=== PATIENT | female | born 1995 | race Caucasian/White ===

== ENCOUNTER → 2017-03-28 | Outpatient (REF) | payer OTHER ==
[2017-03-28 18:58] LABS: MEAN CORPUSCULAR HEMOGLOBIN 28.8 pg (27.0-33.0); MEAN CORPUSCULAR HGB CONC 32.5 g/dl (32.0-36.5); MEAN CORPUSCULAR VOLUME 88.5 fl (80.0-96.0); PLATELET COUNT, AUTOMATED 228 10^3/uL (150-450); RED CELL DISTRIBUTION WIDTH 13.4 % (11.5-14.5); WHITE BLOOD COUNT 9.6 10^3/uL (4.0-10.0)
[2017-03-29 11:06] LABS: HBsAg Prenatal NEGATIVE (NEGATIVE)
== END ==
LOC: M LAB REF 16:40
PROVIDERS: ATTEND Obstetrics & Gynecology
DX: O36.80X0 Pregnancy with inconclusive fetal viability, not applicable or unspecified (principal)

== ENCOUNTER → 2017-08-26 | Outpatient (CLI) | payer OTHER ==
[2017-08-26 11:15] LABS: HEMATOCRIT 31.8 % (36.0-47.0); HEMOGLOBIN 10.6 g/dl (12.0-15.5); MEAN CORPUSCULAR HEMOGLOBIN 30.1 pg (27.0-33.0); MEAN CORPUSCULAR HGB CONC 33.3 g/dl (32.0-36.5); MEAN CORPUSCULAR VOLUME 90.3 fl (80.0-96.0); PLATELET COUNT, AUTOMATED 188 10^3/uL (150-450); RED BLOOD COUNT 3.52 10^6/uL (4.00-5.40); RED CELL DISTRIBUTION WIDTH 13.1 % (11.5-14.5); WHITE BLOOD COUNT 10.4 10^3/uL (4.0-10.0)
[2017-08-26 12:16] LABS: GLUCOSE CHALLENGE TEST 1 HOUR 114 MG/DL (LESS THAN 140)
== END ==
LOC: M LAB 09:31
DX: Z34.82 Encounter for supervision of other normal pregnancy, second trimester (principal); Z3A.00 Weeks of gestation of pregnancy not specified
CPT/HCPCS: 82950

== ENCOUNTER 2017-11-26 10:17 | Inpatient (IN) | payer OTHER ==
[2017-11-26 11:39] LABS: HEMATOCRIT 33.6 % (36.0-47.0); HEMOGLOBIN 10.9 g/dl (12.0-15.5); MEAN CORPUSCULAR HEMOGLOBIN 26.5 pg (27.0-33.0); MEAN CORPUSCULAR HGB CONC 32.4 g/dl (32.0-36.5); MEAN CORPUSCULAR VOLUME 81.6 fl (80.0-96.0); PLATELET COUNT, AUTOMATED 163 10^3/uL (150-450); RED BLOOD COUNT 4.12 10^6/uL (4.00-5.40); WHITE BLOOD COUNT 8.8 10^3/uL (4.0-10.0)
[2017-11-26] MEDS: miSOPROStol 50 MCG 1/2 TAB (S0191) PO (13:10)
[2017-11-26] MEDS: valACYclovir HCL 500 MG TAB PO (13:26)
[2017-11-26] MEDS ORDERED: OXYTOCIN 30 UNITS IN 0.9% NaCl 500ML IV BAG (J2590) As Ordered (19:56)
[2017-11-26] MEDS: OXYTOCIN DRIP 30 UNITS in APPROPRIATE DILUENT 1 EA IV (20:11)
[2017-11-26] MEDS: LR 1,000 ML IV (20:11)
[2017-11-26] MEDS ORDERED: FENTANYL 2MCG/ML ROPIVACAINE 0.2% IN 0.9% NACL 200ML IVBAG As Ordered (23:07)
[2017-11-27] MEDS ORDERED: EPIDURAL/PCA KEYS XX (00:45)
[2017-11-27] MEDS ORDERED: REFRIGERATOR IV KEYS XX (00:45)
[2017-11-27] MEDS ORDERED: FENTANYL/ROPIVACAINE/NACL BAG 200 ML EPIDURAL (00:45)
[2017-11-27] MEDS ORDERED: NALOXONE INJ 0.4 MG/1 ML VIAL (J2310) IV (00:45)
[2017-11-27] MEDS ORDERED: diphenhydrAMINE INJ 50MG/ML VIAL (J1200) IV (00:45)
[2017-11-27] MEDS ORDERED: ePHEDrine SULFATE 25 MG/5 ML(5MG/ML) SYRINGE IV (00:45)
[2017-11-27] MEDS ORDERED: LACTATED RINGER'S 1000 ML IV (00:45)
[2017-11-27] MEDS ORDERED: EPIDURAL COMMENT XX (00:45)
[2017-11-27] MEDS: ONDANSETRON 4MG/2ML VIAL (J2405) IV (00:59)
[2017-11-27] MEDS: OXYTOCIN DRIP 30 UNITS in APPROPRIATE DILUENT 1 EA IV (08:25)
[2017-11-27] MEDS ORDERED: ANUSOL HC CREAM 30GM TOP (08:30)
[2017-11-27] MEDS ORDERED: METHYLERGONOVINE MALEATE 0.2 MG TAB PO (08:30)
[2017-11-27] MEDS ORDERED: MEASLES,MUMPS,RUBELLA VACCINE INJ (MMR-II) (90707) SC (08:30)
[2017-11-27] MEDS ORDERED: RHOGAM 300 MCG (1500 IU) INJ (J2790) IM (08:30)
[2017-11-27] MEDS: PRENATAL VITAMINS CHEWABLE TABLET PO (09:00)
[2017-11-27] MEDS: IBUPROFEN 800 MG TAB PO ×2 (12:50→21:24)
[2017-11-28] MEDS: IBUPROFEN 800 MG TAB PO ×2 (05:48→17:37)
[2017-11-28] MEDS: PRENATAL VITAMINS CHEWABLE TABLET PO (08:36)
[2017-11-28] MEDS: DOCUSATE SODIUM 100 MG CAP PO (18:51)
[2017-11-28] MEDS: ACETAMINOPHEN 500 MG TAB PO (23:20)
[2017-11-29] MEDS: IBUPROFEN 800 MG TAB PO (06:34)
[2017-11-29] MEDS: DIBUCAINE 1% OINTMENT 30GM TOP (08:02)
[2017-11-29] MEDS: PRENATAL VITAMINS CHEWABLE TABLET PO (08:03)
== END 2017-11-29 09:45 | disposition home or self-care (01) | DRG 560 ==
LOC: M LDI 10:17 → M OBS 11-27 09:56
PROVIDERS: Advanced Practice Midwife
PROC: 3E0DXGC Introduction of Other Therapeutic Substance into Mouth and Pharynx, External Approach (ICD-10-PCS; 2017-11-26)
PROC: 10E0XZZ Delivery of Products of Conception, External Approach (ICD-10-PCS; principal; 2017-11-27)
PROC: 0KQM0ZZ Repair Perineum Muscle, Open Approach (ICD-10-PCS; 2017-11-27)
DX: O48.0 Post-term pregnancy (principal); B00.9 Herpesviral infection, unspecified; O98.52 Other viral diseases complicating childbirth; O64.5XX0 Obstructed labor due to compound presentation, not applicable or unspecified; Z37.0 Single live birth; Z3A.40 40 weeks gestation of pregnancy; O43.113 Circumvallate placenta, third trimester; F17.200 Nicotine dependence, unspecified, uncomplicated; O69.81X0 Labor and delivery complicated by cord around neck, without compression, not applicable or unspecified; O70.1 Second degree perineal laceration during delivery; O99.334 Smoking (tobacco) complicating childbirth

== ENCOUNTER → 2018-08-15 | Outpatient (CLI) | payer OTHER, MEDICAID ==
[~2018-08-15] MED LIST: ACET1TAB55 PO; MAPA500T2 PO; MOTR200T44 PO; PRENTAB55 PO; VALA500T5 PO
[2018-08-15 13:24] LABS: BASO % 0.3 % (0.0-1.0); EOS # 0.1 10^3/uL (0.0-0.50); EOS % 1.1 % (0.0-3.0); HEMATOCRIT 38.4 % (36.0-47.0); HEMOGLOBIN 12.5 g/dl (12.0-15.5); LYMPH % 28.1 % (24.0-44.0); MEAN CORPUSCULAR HEMOGLOBIN 29.6 pg (27.0-33.0); MEAN CORPUSCULAR HGB CONC 32.6 g/dl (32.0-36.5); MONO # 0.4 10^3/uL (0.0-0.8); MONO % 4.9 % (0.0-5.0); NEUTROPHILS # 4.7 10^3/uL (1.8-7.7); NEUTROPHILS % 65.3 % (36.0-66.0); PLATELET COUNT, AUTOMATED 228 10^3/uL (150-450); RED BLOOD COUNT 4.22 10^6/uL (4.00-5.40); WHITE BLOOD COUNT 7.2 10^3/uL (4.0-10.0)
[2018-08-15 13:58] LABS: PERCENT SATURATION 9.5 % (13.2-45.0)
[2018-08-15 14:05] LABS: FOLATE 19.8 NG/ML
== END ==
LOC: M LAB 12:44
PROVIDERS: ATTEND Internal Medicine Gastroenterology
DX: K62.5 Hemorrhage of anus and rectum (principal)

== ENCOUNTER 2018-11-03 09:45 | Emergency (ER) | payer MEDICAID, OTHER ==
[~2018-11-03] VITALS: Ht 157.5 cm; Wt 72.3 kg
[2018-11-03 09:46] VITALS: BP 140/87
[2018-11-03] MEDS ORDERED: ANUS2.5C2 TOP (10:19)
== END 2018-11-03 10:32 | disposition home or self-care (01) ==
LOC: M ED 09:45
DX: K64.4 Residual hemorrhoidal skin tags (principal); F17.200 Nicotine dependence, unspecified, uncomplicated

== ENCOUNTER 2018-12-01 06:41 | Day surgery (SDC) | payer OTHER ==
[~2018-12-01] VITALS: Ht 157.5 cm; Wt 71.7 kg
[2018-12-01] MEDS: NS 1,000 ML IV ONE ×2 (06:00→07:06)
[~2018-12-01 06:41] MED LIST changes: +ANUS2.5C2 TOP; +LIDOCAINE 2% INJ 100 MG/5 ML SDV (FOR ANES.) As Ordered ONE; +PROPOFOL 200 MG/20 ML VIAL As Ordered ONE
[2018-12-01] MEDS ORDERED: LIDOCAINE 2% INJ 100 MG/5 ML SDV (FOR ANES.) As Ordered ONE (07:09)
[2018-12-01] MEDS ORDERED: PROPOFOL 200 MG/20 ML VIAL As Ordered ONE (07:09)
--- NOTE | 2018-12-01 08:22 | ROOR ---
Patient Name: May Taylor Procedure Date: 12/01/2018 7:54 AM Date of : 1995 Age: 23 Room: [facility] Gender: Female Note Status: Finalized Procedure: Colonoscopy Indications: Hematochezia, Rectal pain Providers: Moncho Sherwood MD Referring MD: Titi Faulkner MD Requesting Provider: Medicines: Monitored Anesthesia Care Complications: No immediate complications. Procedure: Pre-Anesthesia Assessment: - Prior to the procedure, a History and Physical was performed, and patient medications and allergies were reviewed. The patient is competent. The risks and benefits of the procedure and the sedation options and risks were discussed with the patient. All questions were answered and informed consent was obtained. Patient identification and proposed procedure were verified by the physician, the nurse and the anesthesiologist in the procedure room. Mental Status Examination: alert and oriented. Airway Examination: normal oropharyngeal airway and neck mobility. Respiratory Examination: clear to auscultation. CV Examination: normal. Prophylactic Antibiotics: The patient does not require prophylactic antibiotics. Prior Anticoagulants: The patient has taken no previous anticoagulant or antiplatelet agents. ASA Grade Assessment: II - A patient with mild systemic disease. After reviewing the risks and benefits, the patient was deemed in satisfactory condition to undergo the procedure. The anesthesia plan was to use monitored anesthesia care (MAC). Immediately prior to administration of medications, the patient was re-assessed for adequacy to receive sedatives. The heart rate, respiratory rate, oxygen saturations, blood pressure, adequacy of pulmonary ventilation, and response to care were monitored throughout the procedure. The physical status of the patient was re-assessed after the procedure. The Colonoscope was introduced through the anus and advanced to the terminal ileum, with identification of the appendiceal orifice and IC valve. The colonoscopy was performed without difficulty. The patient tolerated the procedure well. The quality of the bowel preparation was good. The terminal ileum, ileocecal valve, appendiceal orifice, and rectum were photographed. Scope insertion time was 3 minutes. Scope withdrawal time was 8 minutes. The total duration of the procedure was 11 minutes. Findings: Hemorrhoids were found on perianal exam. The terminal ileum appeared normal. Non-bleeding external and internal hemorrhoids were found during retroflexion. The hemorrhoids were medium-sized. Normal mucosa was found in the entire colon. Impression: - Hemorrhoids found on perianal exam. - The examined portion of the ileum was normal. - Non-bleeding external and internal hemorrhoids. - Normal mucosa in the entire examined colon. - No specimens collected. Recommendation: - Patient has a contact number available for emergencies. The signs and symptoms of potential delayed complications were discussed with the patient. Return to normal activities tomorrow. Written discharge instructions were provided to the patient. - High fiber diet. - Continue present medications. - Colace capsule(s) orally 100 mg BID for 6 weeks - adjust dose to avoid diarrhea. - Preparation H suppository: Insert rectally daily for 5 days. - Telephone GI clinic if symptomatic in 2 weeks. - Return to primary care physician. Moncho Sherwood MD Moncho Sherwood MD 12/01/2018 8:22:02 AM Electronically signed by Moncho Sherwood MD Number of Addenda: 0 Note Initiated On: 12/01/2018 7:54 AM Estimated Blood Loss: Estimated blood loss: none.
[2018-12-01 08:35] VITALS: BP 114/60
== END 2018-12-01 08:46 | disposition home or self-care (01) ==
LOC: M OPP 06:41
PROVIDERS: ATTEND Internal Medicine Gastroenterology
DX: K64.8 Other hemorrhoids (principal); K92.1 Melena; K62.89 Other specified diseases of anus and rectum; F17.210 Nicotine dependence, cigarettes, uncomplicated

== ENCOUNTER → 2019-05-07 | Outpatient (REF) | payer OTHER ==
[~2019-05-07] MED LIST changes: -LIDOCAINE 2% INJ 100 MG/5 ML SDV (FOR ANES.) As Ordered ONE; -PROPOFOL 200 MG/20 ML VIAL As Ordered ONE
== END ==
LOC: M SFHCCLAY 11:56
PROVIDERS: ATTEND Family Medicine
DX: F41.9 Anxiety disorder, unspecified (principal)

== ENCOUNTER → 2019-09-11 | Outpatient (CLI) | payer OTHER | LOC: M PLALAB 15:43 | PROVIDERS: ATTEND Advanced Practice Midwife | DX: O30.049 Twin pregnancy, dichorionic/diamniotic, unspecified trimester (principal) ==

== ENCOUNTER → 2019-10-08 | Outpatient (REF) | payer OTHER ==
[2019-10-08 20:12] LABS: HEMATOCRIT 33.1 % (36.0-47.0); HEMOGLOBIN 11.1 g/dl (12.0-15.5); MEAN CORPUSCULAR HEMOGLOBIN 29.9 pg (27.0-33.0); MEAN CORPUSCULAR HGB CONC 33.5 g/dl (32.0-36.5); MEAN CORPUSCULAR VOLUME 89.2 fl (80.0-96.0); PLATELET COUNT, AUTOMATED 193 10^3/uL (150-450); RED BLOOD COUNT 3.71 10^6/uL (4.00-5.40); WHITE BLOOD COUNT 8.5 10^3/uL (4.0-10.0)
[2019-10-08 22:06] LABS: CHLAMYDIA DNA AMPLIFICATION NEGATIVE (NEGATIVE); GC DNA AMPLIFICATION NEGATIVE (NEGATIVE)
[2019-10-09 11:55] LABS: HEPATITIS B SURFACE ANTIGEN NEGATIVE (NEGATIVE); HEPATITIS C VIRUS ABY INDEX 0.1 INDEX (<0.8); HIV 1&2 SCREEN CENTAUR NEGATIVE (NEGATIVE)
== END ==
LOC: M PLALAB 14:31
PROVIDERS: ATTEND Advanced Practice Midwife
DX: O30.049 Twin pregnancy, dichorionic/diamniotic, unspecified trimester (principal)

== ENCOUNTER → 2019-11-20 | Outpatient (CLI) | payer OTHER ==
[~2019-11-20] MED LIST changes: +COLA100C5 PO; +DOCU100C16 PO; +FERR32TA; +FOLI1TAB11; +IBUP80TA PO; +PERCOCET PO; +PNV-TAB2 PO; +TUMS500C PO
== END ==
LOC: M WHC 12:56
PROVIDERS: ATTEND Advanced Practice Midwife
DX: O30.042 Twin pregnancy, dichorionic/diamniotic, second trimester (principal); Z3A.19 19 weeks gestation of pregnancy

== ENCOUNTER → 2020-01-07 | Outpatient (CLI) | payer OTHER ==
[2020-01-07 15:23] LABS: BASO % 0.2 % (0.0-1.0); EOS # 0.1 10^3/uL (0.0-0.5); EOS % 0.6 % (0.0-3.0); HEMATOCRIT 35.8 % (36.0-47.0); HEMOGLOBIN 11.7 g/dl (12.0-15.5); LYMPH # 1.5 10^3/uL (1.5-5.0); LYMPH % 13.5 % (24.0-44.0); MEAN CORPUSCULAR HEMOGLOBIN 30.5 pg (27.0-33.0); MEAN CORPUSCULAR HGB CONC 32.7 g/dl (32.0-36.5); MEAN CORPUSCULAR VOLUME 93.5 fl (80.0-96.0); MONO # 0.5 10^3/uL (0.0-0.8); MONO % 4.9 % (0.0-5.0); NEUTROPHILS # 8.9 10^3/uL (1.5-8.5); NEUTROPHILS % 79.7 % (36.0-66.0); PLATELET COUNT, AUTOMATED 167 10^3/uL (150-450); RED BLOOD COUNT 3.83 10^6/uL (4.00-5.40); WHITE BLOOD COUNT 11.1 10^3/uL (4.0-10.0)
== END ==
LOC: M PLALAB 12:46
PROVIDERS: ATTEND Advanced Practice Midwife
DX: Z34.80 Encounter for supervision of other normal pregnancy, unspecified trimester (principal)

== ENCOUNTER → 2020-01-12 | Outpatient (CLI) | payer OTHER ==
--- NOTE | 2020-02-09 07:16 | REP ---
LIMITED OBSTETRICAL ULTRASOUND CLINICAL: Twin for growth evaluation. COMPARISON: 11/20/2019. TECHNIQUE: Transabdominal obstetrical ultrasound with color Doppler evaluation. FINDINGS: Twin diamniotic dichorionic is again appreciated. FETUS A: Fetus A is identified in breech presentation along the maternal right side. The placenta is noted posteriorly and grade 1 without evidence for placenta previa or abruption. The cervix measures 3.5 cm in length and appears closed. heart rate equals 142 beats per minute FETUS A MEASUREMENTS: BPD 64 mm 25 weeks 6 days HC 245 mm 26 weeks 4 days AC 217 mm 26 weeks 1 day FL 47 mm 25 weeks 6 days HL 46 mm 27 weeks 1 day Gestational age by current measurements 26 weeks 1 day with estimated date of delivery 04/18/2020 Estimated weight 882 grams (3rd percentile). FETUS B: Fetus B identified in breech presentation along the anterior left to fetus A. The placenta is noted posteriorly and grade 1 without placenta previa or abruption. heart rate equals 142 beats per minute. FETUS B MEASUREMENTS: BPD 64 mm 26 weeks 0 days HC 252 mm 27 weeks 3 days AC 229 mm 27 weeks 3 days FL 51 mm 27 weeks 3 days HL 45 mm 26 weeks 6 days Estimated gestational age by current measurements 27 weeks 1 day with estimated date of delivery 04/11/2020. Estimated weight 1049 grams (22nd percentile). IMPRESSION: Diamniotic dichorionic twin gestation as described above. MTDD
== END ==
LOC: M WHC 13:59
PROVIDERS: ATTEND Advanced Practice Midwife
DX: O30.043 Twin pregnancy, dichorionic/diamniotic, third trimester (principal)

== ENCOUNTER → 2020-01-15 | Outpatient (CLI) | payer OTHER ==
--- NOTE | 2020-02-09 07:19 | REP ---
TWIN OB ULTRASOUND BIOPHYSICAL PROFILE TECHNIQUE: Real-time sonographic evaluation of gravid uterus performed. FINDINGS: Living intrauterine twin gestation is again noted. Special attention is paid to fetus A in evaluation of IUGR. Estimated gestational age is reportedly 28 weeks 1 day. Cervix is closed and measures 4.6 cm in length. FETUS A: position is breech. Placenta is posterior and grade 1 with no previa or abruptions. stomach, kidneys, and bladder are visualized and are grossly unremarkable. heart rate is 146 beats per minute. Amniotic fluid appears within normal limits with deepest pocket of fluid 4.6 cm. Biophysical profile score is 8/8. S/D ratio in the umbilical artery near the placental insertion is 2.9, near the insertion is 2.9, and then in the mid aspect 2.3. FETUS B: position variable. Placenta is posterior and grade 1 with no previa or abruption. stomach, kidneys, and bladder are visualized and are grossly unremarkable. heart rate is 153 beats per minute. Amniotic fluid appears within normal limits with deepest pocket of fluid 5.0 cm. MTDD
== END ==
LOC: M WHC 06:38
PROVIDERS: ATTEND Advanced Practice Midwife
DX: O30.043 Twin pregnancy, dichorionic/diamniotic, third trimester (principal); Z3A.28 28 weeks gestation of pregnancy; O32.1XX1 Maternal care for breech presentation, fetus 1

== ENCOUNTER → 2020-01-19 | Outpatient (CLI) | payer OTHER ==
--- NOTE | 2020-02-09 07:20 | REP ---
LIMITED OBSTETRICAL ULTRASOUND FOR BIOPHYSICAL PROFILE CLINICAL: Known intrauterine growth restriction (IUGR) twin gestation. TECHNIQUE: Transabdominal obstetrical ultrasound with color Doppler evaluation. FINDINGS: Examination was performed to evaluate twin A, which is closest to the internal os and in transverse lie with head to maternal right. motion was identified by the technologist. The placenta is noted posteriorly and grade 1 without evidence for placenta previa or abruption. Amniotic fluid volume is normal and the deepest pocket measures 4.6 cm. heart rate equals 153 beats per minute. Cervix measures 3.5 cm in length. Umbilical S/D ratio equals 2.8. Biophysical profile score twin A equals 8/8. IMPRESSION: Twin A identified in transverse lie demonstrating approximately biophysical profile score and amniotic fluid volume. MTDD
== END ==
LOC: M WHC 13:05
PROVIDERS: ATTEND Advanced Practice Midwife
DX: O30.042 Twin pregnancy, dichorionic/diamniotic, second trimester (principal)

== ENCOUNTER → 2020-01-22 | Outpatient (CLI) | payer OTHER ==
--- NOTE | 2020-02-10 11:06 | REP ---
LIMITED OBSTETRIC ULTRASOUND FOR BIOPHYSICAL PROFILE CLINICAL: Known diamniotic dichorionic twin gestation with intrauterine growth restriction twin A. TECHNIQUE: Transabdominal obstetrical ultrasound with color Doppler evaluation. FINDINGS: Known advanced diamniotic dichorionic twin gestation. Twin A is identified in breech presentation. heart rate equals 139 beats per minute. Placenta is noted posteriorly and grade 1 without placenta previa. Biophysical profile score equals 8/8. Twin B identified in transverse lie towards the right side. motion was identified. heart rate equals 146 beats per minute. Placenta is noted posteriorly and grade 1 without placenta previa. Biophysical profile score not performed. IMPRESSION: Twin A biophysical profile score equals 8/8. heart rate equals 139 beats per minute. MTDD
== END ==
LOC: M WHC 12:24
PROVIDERS: ATTEND Advanced Practice Midwife
DX: O30.049 Twin pregnancy, dichorionic/diamniotic, unspecified trimester (principal)

== ENCOUNTER → 2020-01-25 | Outpatient (CLI) | payer OTHER ==
--- NOTE | 2020-02-10 11:17 | REP ---
OBSTETRIC SONOGRAPHY: MULTIPLE GESTATION HISTORY: Twin gestation. Intrauterine growth restriction (IUGR). growth study. Biophysical profile. FINDINGS: Scanning through the gravid uterus again demonstrates diamniotic dichorionic twin gestation. Placentas are posterior grade 1 with no evidence of placenta previa or abruption. Closed cervical length is measured transabdominally at 3.4 cm. Twin A is cephalic in lie along the maternal right. Twin B is breech in position and located along the maternal left. Amniotic fluid is subjectively normal. The deepest pocket of amniotic fluid surrounding twin A measures 4.1 and surrounding twin B 5.3 cm. There has been appropriate interval growth in twin B. There has been less than expected interval growth in twin A. There appears to be nuchal cord at this juncture twin A. Biophysical profile and cord Dopplers were obtained for twin A only, biophysical profile score for twin A is 8 out of a possible 8. Umbilical artery Doppler is normal. S/D ratio 2.3. BIOMETRY CHART: FETUS A BPD 7.2 cm 29 weeks 0 day Head circumference 26.6 cm 29 weeks 0 days Abdominal circumference 23.1 cm 27 weeks 3 days Femur length 5.2 cm 27 weeks 6 days Humeral length 4.7 cm 28 weeks 0 days AC/HC ratio 1.15 Normal Cephalic index 0.76 Normal Estimated weight 1139 g, 2 pounds 8 ounces Less than 3rd percentile for 29 weeks 4 days. heart rate 153 beats per minute FETUS B BPD 7.1 cm 28 weeks 3 days Head circumference 27.0 cm 29 weeks 3 days Abdominal circumference 25.3 cm 29 weeks 4 days Femur length 5.4 cm 28 weeks 5 days Humeral length 5.0 cm 29 weeks 3 days AC/HC ratio 1.07 Normal Cephalic index 0.72 Normal Estimated weight 1152 g, 2 pounds 15 ounces 24th percentile for 29 weeks 4 days. IMPRESSION: Viable twin intrauterine gestation at 29 weeks 4 days by prior study. Estimated date of delivery (JOSUÉ) 04/07/2020. Estimated weight for twin A is less than 3rd percentile. MTDD
== END ==
LOC: M WHC 14:10
PROVIDERS: ATTEND Advanced Practice Midwife
DX: Z36.89 Encounter for other specified antenatal screening (principal); Z3A.29 29 weeks gestation of pregnancy

== ENCOUNTER → 2020-01-29 | Outpatient (CLI) | payer OTHER ==
--- NOTE | 2020-02-10 11:09 | REP ---
OBSTETRIC SONOGRAPHY: MULTIPLE GESTATION HISTORY: Twin gestation. Intrauterine growth restriction (IUGR). Biophysical profile and cord Doppler. Limited exam. FINDINGS: Scanning demonstrates a dichorionic diamniotic twin viable intrauterine at 30 weeks 1 day. Fetus A is transverse head toward the maternal right. Fetus B is breech toward the maternal left. Deepest pocket of amniotic fluid surrounding twin A is 4.8 cm and adjacent to twin B is 5.7 cm. Closed cervical length is 3.9 cm measured transabdominally. heart rate for fetus A is recorded at 140 beats per minute. Biophysical profile score is 8 out of a possible 8 for fetus A. heart rate for fetus B is recorded at 153 beats per minute. MTDD
== END ==
LOC: M WHC 13:53
PROVIDERS: ATTEND Advanced Practice Midwife
DX: O30.043 Twin pregnancy, dichorionic/diamniotic, third trimester (principal); Z3A.30 30 weeks gestation of pregnancy; O32.1XX2 Maternal care for breech presentation, fetus 2

== ENCOUNTER → 2020-02-01 | Outpatient (CLI) | payer OTHER ==
--- NOTE | 2020-02-10 11:11 | REP ---
BIOPHYSICAL PROFILE CLINICAL: Known diamniotic dichorionic twin gestation with intrauterine growth restriction (IUGR). TECHNIQUE: Transabdominal obstetrical ultrasound with color Doppler evaluation. TWIN A FINDINGS: Identified in breech presentation. Placenta noted posteriorly and grade 1 without evidence for placenta previa. Amniotic fluid is normal with the largest pocket measuring 4.1 cm. Cervix measures 3.9 cm in length and appears closed. heart rate 136 beats per minute. Biophysical profile score 8/8. IMPRESSION: Twin A demonstrates a normal biophysical profile score and normal amniotic fluid volume. MTDD
== END ==
LOC: M WHC 14:04
PROVIDERS: ATTEND Advanced Practice Midwife
DX: O30.049 Twin pregnancy, dichorionic/diamniotic, unspecified trimester (principal); Z3A.00 Weeks of gestation of pregnancy not specified; O32.1XX1 Maternal care for breech presentation, fetus 1

== ENCOUNTER → 2020-02-05 | Outpatient (CLI) | payer OTHER | LOC: M WHC 14:02 | PROVIDERS: ATTEND Advanced Practice Midwife | DX: O30.049 Twin pregnancy, dichorionic/diamniotic, unspecified trimester (principal); Z3A.31 31 weeks gestation of pregnancy ==

== ENCOUNTER → 2020-02-08 | Outpatient (CLI) | payer OTHER ==
--- NOTE | 2020-02-10 11:13 | REP ---
OB ULTRASOUND TWIN GESTATION BIOPHYSICAL PROFILE FOR FETUS A HISTORY: Intrauterine growth restriction (IUGR). TECHNIQUE: Real-time sonographic evaluation of gravid uterus performed. FINDINGS: There is a living diamniotic dichorionic twin gestation. Estimated gestational age is reportedly 31 weeks 1 day, estimated date of confinement (EDC) 04/07/2020. Position for fetus A is cephalic on the right. Placenta is posterior and grade 1 with no previa or abruption. heart rate is 139 beats per minute. Amniotic fluid appears within normal limits with deepest pocket of fluid 4.3 cm. Biophysical profile score is 8/8. S/D ratio in umbilical artery is 0.70 to 0.72 within normal range. position for fetus B is cephalic on the left side anterior to fetus A. heart rate is 132 beats per minute. Amniotic fluid for fetus B within normal range with deepest pocket of fluid 5.3 cm. Cervical length is 3.4 cm. MTDD
== END ==
LOC: M WHC 13:55
PROVIDERS: ATTEND Advanced Practice Midwife
DX: O30.043 Twin pregnancy, dichorionic/diamniotic, third trimester (principal); Z3A.31 31 weeks gestation of pregnancy; O32.1XX2 Maternal care for breech presentation, fetus 2

== ENCOUNTER → 2020-02-12 | Outpatient (CLI) | payer OTHER ==
[~2020-02-12] MED LIST changes: -DOCU100C16 PO; -IBUP80TA PO; -PERCOCET PO
--- NOTE | 2020-02-22 17:14 | REP ---
OBSTETRIC SONOGRAPHY HISTORY: Supervision of for biophysical profile and cord Doppler. Twin gestation. Intrauterine growth restriction (IUGR) twin A. LIMITED OB ULTRASOUND FINDINGS: Viable twin intrauterine gestation is seen. Fetus A is cephalic along the maternal right and fetus B breech along the maternal left. Placenta is posterior grade 2 without evidence of previa. Diamniotic dichorionic . heart rate for twin A is recorded at 149 beats per minute and that for twin B 161 beats per minute. Biophysical profile for twin A is 8 out of a possible 8. S/D ratio in the umbilical cord artery by Doppler is normal at 2.35. Nuchal cord was visualized for fetus A. MTDD
== END ==
LOC: M WHC 13:55
PROVIDERS: ATTEND Advanced Practice Midwife
DX: O30.049 Twin pregnancy, dichorionic/diamniotic, unspecified trimester (principal); Z3A.00 Weeks of gestation of pregnancy not specified; O32.1XX2 Maternal care for breech presentation, fetus 2

== ENCOUNTER → 2020-02-15 | Outpatient (CLI) | payer OTHER ==
--- NOTE | 2020-02-22 17:17 | REP ---
OBSTETRIC SONOGRAPHY MULTIPLE GESTATION HISTORY: Twin gestation. Twin A intrauterine growth restriction (IUGR). Limited study. FINDINGS: Scanning demonstrates a twin intrauterine gestation. Fetus A is cephalic along the maternal right and fetus B breech along the maternal left. Placenta is posterior grade 2. No evidence of previa. Closed cervical length is 3.3 cm measured transabdominally. heart rate for twin A is recorded at 146 beats per minute and that for twin B 149 beats per minute. Amniotic fluid is subjectively normal. The deepest pocket of amniotic fluid surrounding twin A is 5.6 cm and that adjacent to twin B 5.8 cm. Biophysical profile score for twin A was 8 out of a possible 8. S/D ratio in the umbilical cord artery by Doppler for twin A is normal at 2.7. MTDD
== END ==
LOC: M WHC 14:34
PROVIDERS: ATTEND Advanced Practice Midwife
DX: O30.049 Twin pregnancy, dichorionic/diamniotic, unspecified trimester (principal); O36.5992 Maternal care for other known or suspected poor fetal growth, unspecified trimester, fetus 2

== ENCOUNTER → 2020-02-19 | Outpatient (CLI) | payer OTHER ==
--- NOTE | 2020-02-24 15:11 | REP ---
LIMITED OBSTETRIC SONOGRAPHY: MULTIPLE GESTATION HISTORY: Twin gestation. Biophysical profile and abdominal umbilical cord Dopplers. FINDINGS: Viable twin intrauterine gestation is again seen. Fetus A is cephalic and right- sided. Fetus B is also cephalic along the maternal left. Placenta posterior grade 2 without evidence of previa. heart rate for twin A is recorded at 156 beats per minute and heart rate for twin B at 132 beats per minute. Closed cervical length is measured transabdominally at 3.4 cm. Biophysical profile score is 8 out of a possible 8 for fetus A. S/D ratio in the umbilical cord artery by Doppler in fetus A is normal at 2.63. MTDD
== END ==
LOC: M WHC 14:38
PROVIDERS: ATTEND Advanced Practice Midwife
DX: O30.049 Twin pregnancy, dichorionic/diamniotic, unspecified trimester (principal); O36.5991 Maternal care for other known or suspected poor fetal growth, unspecified trimester, fetus 1

== ENCOUNTER → 2020-02-29 | Outpatient (CLI) | payer OTHER ==
[~2020-02-29] MED LIST changes: +DOCU100C16 PO; +IBUP80TA PO; +PERCOCET PO
--- NOTE | 2020-02-29 18:05 | REP ---
INDICATION: BPP/CORD DOPPLERS/TWINS COMPARISON: 02/26/2020 TECHNIQUE: Transabdominal obstetrical ultrasound with color Doppler evaluation. FINDINGS: Examination demonstrates advanced live twin . Gestational age by LMP 34 weeks 4 days with estimated date of delivery 04/07/2020. Cervix measures 3.7 cm in length and appears closed. TWIN A: Cephalic towards right side of the uterus. heart rate equals 150 beats per minute. Placenta noted posterior and grade 2. Amniotic fluid volume deepest pocket: 5.9 cm Biophysical profile score: 8/8 Umbilical artery 1 SD ratio: 2.95 Umbilical artery 2 SD ratio: 2.80 TWIN B: Breech presentation towards left side of the uterus. heart rate equals 136 beats per minute. Placenta noted posteriorly and grade 2. Amniotic fluid volume deepest pocket: 4.4 cm IMPRESSION: Live advanced twin gestation. Fetus a demonstrates a normal biophysical profile score and umbilical artery SD ratios. <Electronically signed by Christopher Cheney > 02/29/20 [id number]
== END ==
LOC: M WHC 14:05
PROVIDERS: ATTEND Advanced Practice Midwife
DX: O30.043 Twin pregnancy, dichorionic/diamniotic, third trimester (principal); Z3A.34 34 weeks gestation of pregnancy

== ENCOUNTER → 2020-03-02 | Outpatient (REF) | payer OTHER | LOC: M SFHCWAGY 13:12 | PROVIDERS: ATTEND Advanced Practice Midwife | DX: O30.043 Twin pregnancy, dichorionic/diamniotic, third trimester (principal) ==

== ENCOUNTER 2020-03-03 12:45 | Outpatient (CLI) | payer OTHER ==
[~2020-03-03] VITALS: Ht 160 cm; Wt 94.2 kg
[~2020-03-03 12:45] MED LIST changes: -COLA100C5 PO; -DOCU100C16 PO; -FERR32TA; -FOLI1TAB11; -IBUP80TA PO; -PERCOCET PO; -PNV-TAB2 PO; -TUMS500C PO
[2020-03-03] MEDS ORDERED: FERR32TA (12:56)
[2020-03-03] MEDS ORDERED: FOLI1TAB11 (12:56)
[2020-03-03] MEDS ORDERED: TUMS500C PO (12:56)
[2020-03-03] MEDS ORDERED: PNV-TAB2 PO (12:56)
[2020-03-03 13:02] VITALS: BP 117/68
[2020-03-03] MEDS ORDERED: BETAMETHASONE SOLUSPAN 6MG/ML 5ML VIAL (J0702 PER 3MG) IM ONE (13:15)
--- NOTE | 2020-03-03 14:15 | IPNPDOC ---
Text Note Date of Service The patient was seen on 03/03/20. NOTE Triage Note Pt presented for betamethasone IM injection to enhance lung maturity prior to planned PLTCS on 2 Nov at 37wk for di-di twins with cephalic/breech presentation. Normal complaints of . No LOF/vaginal bleeding/regular- painful ctx. Good mvmt x2. Vitals wnl Cat I FHRT x2 with irregular ctx Betamethasone 12mg IM x1 given and well tolerated Pt to present to L&D tomorrow same time for repeat dose. No need for monitoring tomorrow given that she has had reactive NST 2 days in a row including office visit yesterday. Return precautions discussed Felicity Bennett MD VS,Sinan, I+O VS, Sinan, I+O Vital Signs Date Time Temp Pulse Resp B/P (MAP) Pulse Ox O2 Delivery O2 Flow Rate FiO2 03/03/20 13:02 98.0 73 18 117/68 (84) Felicity Bennett MD Mar 03, 2020 14:15
[2020-03-04] MEDS ORDERED: COLA100C5 PO (13:24)
== END 2020-03-03 14:15 | disposition home or self-care (01) ==
LOC: M LDO 12:45
PROVIDERS: ATTEND Obstetrics & Gynecology
DX: O30.043 Twin pregnancy, dichorionic/diamniotic, third trimester (principal); Z3A.35 35 weeks gestation of pregnancy
CPT/HCPCS: 59025; 96372; J0702

== ENCOUNTER 2020-03-04 13:00 | Outpatient (CLI) | payer OTHER ==
[~2020-03-04] VITALS: Ht 160 cm; Wt 92.0 kg
[~2020-03-04 13:00] MED LIST changes: -COLA100C5 PO; -DOCU100C16 PO; -IBUP80TA PO; -PERCOCET PO
[2020-03-04 13:20] VITALS: BP 126/61
[2020-03-04] MEDS ORDERED: COLA100C5 PO (13:24)
[2020-03-04 13:50] VITALS: BP 133/63
--- NOTE | 2020-03-04 13:57 | IPNPDOC ---
Text Note Date of Service The patient was seen on 03/04/20. NOTE Outpatient Ms Claudia is a 24yo G 2P1 JOSUÉ 04/07/2020. Presents @ 35w1d for Betamethasone injection #2. History significant for di/di twin gestation. Planing primary section. Pt called oncall last night with complaints of UC. She reports falling asleep around 0400. States she feels much improved now. Cat I tracing x 2 Rare uterine irritability Beta #2 ordered. Pt discharged to ultrasound for scheduled BPP. Keep next appt VS,Fishbone, I+O VS, Fishbone, I+O Vital Signs Date Time Temp Pulse Resp B/P (MAP) Pulse Ox O2 Delivery O2 Flow Rate FiO2 03/04/20 13:20 98.2 83 18 126/61 (82) Mona Cueto CNM Mar 04, 2020 13:57
[2020-03-04] MEDS ORDERED: BETAMETHASONE SOLUSPAN 6MG/ML 5ML VIAL (J0702 PER 3MG) IM ONE (14:00)
== END 2020-03-04 13:55 | disposition home or self-care (01) ==
LOC: M LDO 13:00
PROVIDERS: ATTEND Advanced Practice Midwife
DX: O30.043 Twin pregnancy, dichorionic/diamniotic, third trimester (principal); Z3A.35 35 weeks gestation of pregnancy
CPT/HCPCS: 96372; J0702

== ENCOUNTER → 2020-03-04 | Outpatient (CLI) | payer OTHER ==
[~2020-03-04] MED LIST changes: +COLA100C5 PO; +DOCU100C16 PO; +FERR32TA; +FOLI1TAB11; +IBUP80TA PO; +PERCOCET PO; +PNV-TAB2 PO; +TUMS500C PO
--- NOTE | 2020-03-04 15:38 | REP ---
INDICATION: BPP/CORD DOPPLERS/TWINS COMPARISON: 03/04/2020 TECHNIQUE: Transabdominal obstetrical ultrasound with color Doppler evaluation. FINDINGS: Examination demonstrates advanced twin live intrauterine . Gestational age by LMP 35 weeks 1 day with estimated date of delivery 04/07/2020. Cervix measures 3.4 cm in length and appears closed. TWIN A: Cephalic presentation heart rate equals 146 beats per minute. Placenta noted posteriorly and grade 2. Amniotic fluid volume deepest pocket: 4.6 cm Biophysical profile score: 8/8 Umbilical artery 1 SD ratio: 2.16 (1.68-3.58) Umbilical artery 2 SD ratio: 2.19 TWIN B: Breech presentation heart rate equals 127 beats per minute. Placenta noted posteriorly and grade 2. Amniotic fluid volume deepest pocket: 5.2 cm IMPRESSION: Advanced twin gestation. Twin A biophysical profile score, amniotic fluid volume, and artery SD ratios are normal. <Electronically signed by Christopher Cheney > 03/04/20 [id number]
== END ==
LOC: M WHC 14:04
PROVIDERS: ATTEND Advanced Practice Midwife
DX: Z36.89 Encounter for other specified antenatal screening (principal); Z3A.35 35 weeks gestation of pregnancy

== ENCOUNTER → 2020-03-07 | Outpatient (CLI) | payer OTHER ==
[~2020-03-07] MED LIST changes: +COLA100C5 PO; +DOCU100C16 PO; +IBUP80TA PO; +PERCOCET PO
--- NOTE | 2020-03-08 08:05 | REP ---
INDICATION: BPP/CORD DOPPLERS/GROWTH - TWINS. Multiple gestation. IUGR twin A. COMPARISON: Comparison study March 04, 2020.. TECHNIQUE: Transabdominal obstetric sonography scanning. FINDINGS: Twin intrauterine gestation is again seen. Diamniotic, dichorionic. Fetus A is cephalic in presentation on the maternal right. Posterior grade 3 placenta is seen without evidence of previa. heart rate is recorded at 132 beats per minute for fetus A. Amniotic fluid is subjectively normal. Deepest pocket of amniotic fluid surrounding fetus A is 5.1 cm. Biometry chart fetus A: BPD 8.0 cm 32 weeks 1 day Head circumference 29.8 cm 33 weeks 0 days Abdominal circumference 28.3 cm 32 weeks 2 days Femur length 6.2 cm 32 weeks 0 days Humeral length 5.6 cm 32 weeks 2 days HC/AC ratio normal 1.06 Cephalic index normal 0.74 Estimated weight 1939 grams, 4 lb 4 oz, less than 3rd percentile for 35 weeks 4 days Biophysical profile score 8 out of a possible 8 S/D ratio of the umbilical cord artery by Doppler normal 2.74 Fetus B is breech and along the maternal left. Posterior grade 3 placenta no previa. heart rate is recorded at 139 beats per minute. Amniotic fluid is subjectively normal, deepest pocket 4.0 cm. Biometry chart: Fetus B: BPD 8.2 cm 32 weeks 6 days Head circumference 30.5 cm 34 weeks 0 days Abdominal circumference 31.3 cm 35 weeks 1 day Femur length 6.6 cm 34 weeks 1 day Humeral length 5.8 cm 33 weeks 4 days HC/AC ratio normal 1.0 Cephalic index normal 0.7 Estimated weight 2456 grams, 5 lb 6 oz, 22nd percentile for 35 weeks 4 days IMPRESSION: Viable twin intrauterine gestation at 35 weeks 4 days by prior criteria. JOSUÉ April 07, 2020. Estimated weight for fetus A is less than 3rd percentile. <Electronically signed by Martín Philippe > 03/08/20 [id number]
== END ==
LOC: M WHC 13:57
PROVIDERS: ATTEND Advanced Practice Midwife
DX: Z36.4 Encounter for antenatal screening for fetal growth retardation (principal); Z3A.35 35 weeks gestation of pregnancy; O30.043 Twin pregnancy, dichorionic/diamniotic, third trimester

== ENCOUNTER → 2020-03-09 | Outpatient (CLI) | payer OTHER | LOC: M LABSMTC 09:52 | PROVIDERS: ATTEND Anesthesiology | DX: Z01.812 Encounter for preprocedural laboratory examination (principal); Z20.828 Contact with and (suspected) exposure to other viral communicable diseases | CPT/HCPCS: C9803; U0003 ==

== ENCOUNTER 2020-03-10 07:30 | Inpatient (IN) | payer OTHER ==
[~2020-03-10] VITALS: Ht 160 cm; Wt 92.4 kg
[~2020-03-10 07:30] MED LIST changes: -DOCU100C16 PO; -IBUP80TA PO; -PERCOCET PO
[2020-03-14] MEDS ORDERED: LR 1,000 ML IV SCH ×2 (06:06→10:00)
[2020-03-14] MEDS ORDERED: LACTATED RINGER'S 1000 ML IV STA (06:06)
[2020-03-14] MEDS ORDERED: BICITRA 30ML SOLN UDC PO ONE (06:15)
[2020-03-14] MEDS ORDERED: ceFAZolin SOD 2 GM in IV 1 EA IV ONE (06:15)
[2020-03-14 06:16] LABS: HEMATOCRIT 37.5 % (36.0-47.0); HEMOGLOBIN 12.6 g/dl (12.0-15.5); MEAN CORPUSCULAR HEMOGLOBIN 30.1 pg (27.0-33.0); MEAN CORPUSCULAR HGB CONC 33.6 g/dl (32.0-36.5); MEAN CORPUSCULAR VOLUME 89.5 fl (80.0-96.0); PLATELET COUNT, AUTOMATED 146 10^3/uL (150-450); RED BLOOD COUNT 4.19 10^6/uL (4.00-5.40)
[2020-03-14] MEDS ORDERED: diphenhydrAMINE 50MG/ML VIAL (J1200) IV PRN (08:03)
[2020-03-14] MEDS ORDERED: NALBUPHINE HCL 10 MG/ML AMP (J2300) IV PRN ×2 (08:03→10:00)
[2020-03-14] MEDS ORDERED: ONDANSETRON 4MG/2ML VIAL IV PRN ×2 (08:03→10:00)
[2020-03-14] MEDS ORDERED: NALOXONE INJ 0.4MG/1ML VIAL (J2310 PER 1MG) IV PRN ×2 (08:03)
[2020-03-14] MEDS ORDERED: METOCLOPRAMIDE INJ 10MG/2ML VIAL (J2765 PER 1) IV PRN (08:03)
--- NOTE | 2020-03-14 08:04 | IPNPDOC ---
Text Note Date of Service The patient was seen on 03/14/20. NOTE H&P paper form completed this morning and placed in chart. Patient doing well, no changes to her health. Babies moving well. No regular/painful ctx, LOF, vb. Steroid complete as of 03/03-03/04. BPP 8/8 for twin A (IUGR 10%) on 03/11. Placentas posterior At BPP on 03/11, babies were cephalic cephalic. This morning H/H 12.6/37.5, plt 146 Will proceed to OR for planned PLTCS. Felicity Bennett MD [facility] Laboratory Tests 03/14/20 05:56 Felicity Bennett MD Mar 14, 2020 08:04
[2020-03-14] MEDS ORDERED: MORPHINE PRES-FREE INJ 10 MG/10 ML VIAL (J2274) As Ordered ONE (08:14)
[2020-03-14] MEDS ORDERED: OXYTOCIN INJ 10 UNITS/ML VIAL (J2590) As Ordered ONE (08:14)
[2020-03-14] MEDS ORDERED: ONDANSETRON 4MG/2ML VIAL As Ordered ONE ×2 (08:14→08:24)
[2020-03-14] MEDS ORDERED: PHENYLephrine HCL 500 MCG/5 ML (100MCG/ML) SYRINGE (J2370) As Ordered ONE (08:14)
[2020-03-14] MEDS ORDERED: METOCLOPRAMIDE INJ 10MG/2ML VIAL (J2765 PER 1) As Ordered ONE (08:24)
[2020-03-14] MEDS ORDERED: ePHEDrine SULFATE 25 MG/5 ML(5MG/ML) SYRINGE As Ordered ONE (08:36)
[2020-03-14] MEDS ORDERED: OXYTOCIN DRIP 30 UNITS in IV 1 EA IV SCH (09:23)
[2020-03-14] MEDS ORDERED: MEASLES,MUMPS,RUBELLA VACCINE INJ (MMR-II) (90707) SC SCH (09:30)
[2020-03-14] MEDS ORDERED: RHOGAM 300 MCG (1500 IU) INJ (J2790) IM SCH (09:30)
[2020-03-14] MEDS ORDERED: fentaNYL 100 MCG/2 ML INJECTION (J3010) IV PRN (10:00)
[2020-03-14] MEDS ORDERED: MEPERIDINE INJ 25 MG/ML VIAL (J2175) IV PRN (10:00)
[2020-03-14] MEDS ORDERED: KETOROLAC 30 MG/ML 1ML VIAL IV PRN (10:00)
[2020-03-14] MEDS ORDERED: PERCOCET 5MG/325MG TAB PO PRN (10:00)
[2020-03-14] MEDS ORDERED: KETOROLAC 30 MG/ML 1ML VIAL As Ordered ONE (10:04)
[2020-03-14] MEDS: KETOROLAC 30 MG/ML 1ML VIAL IV SCH ×3 (10:13→21:36)
[2020-03-14] MEDS ORDERED: OXYTOCIN 30 UNITS IN 0.9% NaCl 500ML IV BAG (J2590) As Ordered ONE (10:15)
[2020-03-14 11:30] VITALS: BP 126/68
[2020-03-14 12:30] VITALS: BP 118/70
[2020-03-14 13:29] VITALS: BP 142/69
[2020-03-14 17:50] VITALS: BP 133/67
[2020-03-14] MEDS: DOCUSATE SODIUM 100 MG CAP PO SCH (21:36)
[2020-03-14 22:23] VITALS: BP 133/64
[2020-03-15 01:40] VITALS: BP 140/60
[2020-03-15] MEDS: PERCOCET 5MG/325MG TAB PO PRN ×4 (02:48→22:35)
[2020-03-15] MEDS: KETOROLAC 30 MG/ML 1ML VIAL IV SCH (03:43)
[2020-03-15 05:39] VITALS: BP 113/53
[2020-03-15 07:13] LABS: HEMATOCRIT 32.5 % (36.0-47.0); MEAN CORPUSCULAR HEMOGLOBIN 29.2 pg (27.0-33.0); MEAN CORPUSCULAR HGB CONC 31.7 g/dl (32.0-36.5); MEAN CORPUSCULAR VOLUME 92.1 fl (80.0-96.0); PLATELET COUNT, AUTOMATED 103 10^3/uL (150-450); RED BLOOD COUNT 3.53 10^6/uL (4.00-5.40); WHITE BLOOD COUNT 8.9 10^3/uL (4.0-10.0)
--- NOTE | 2020-03-15 07:13 | IPNPDOC ---
Progress Note Date of Service: Mar 15, 2020 Day#: 1 Progress Note SUBJECT: May is a 24-year-old 2 now Para 2-0-0-3 status post primary c/section for di-di twins, doing well post-operative day # 1. She has been ambulating to NICU, voiding spontaneously without issue and tolerating regular diet. Breast feeding one without issue, other in NICU. Reports lochia is like a normal period. Reports some cramping with , pain well controlled with Tylenol, Motrin, and Oxycodone. Voiding and passing flatus without difficulty. OBJECTIVE: VITAL SIGNS: Within normal limits, afebrile. Alert and oriented times three. Abdomen: Fundus firm at U-1. Soft, NTTP. Dressing intact, red bleeding outlined on dressing, increased minimally towards edge of dressing. Minimal, rubra lochia. ASSESSMENT: Post-operative Day 1. PLAN: 1. Tylenol, Motrin, and Oxycodone for pain. 2. Encourage breast feeding and ambulation. 3. CBC this AM pending. 4. Discharge home on Day 3. VS, I&O, 24H, Fishbone Vital Signs/I&O Vital Signs Date Time Temp Pulse Resp B/P (MAP) Pulse Ox O2 Delivery O2 Flow Rate FiO2 03/15/20 05:39 97.8 70 18 113/53 (73) 98 03/14/20 13:29 Room Air I&O- Last 24 Hours up to 6 AM 03/15/20 06:00 Intake Total 1544 ml Output Total 1725 ml Balance -181 ml Laboratory Data CBC/BMP BHAVANA GILL CNM Mar 15, 2020 07:13
[2020-03-15 07:19] LABS: HEMOGLOBIN 10.3 g/dl (12.0-15.5)
--- NOTE | 2020-03-15 07:53 | RO ---
DATE OF OPERATION: 03/14/2020 PREOPEATIVE DIAGNOSIS: 36 week, 4 days di/di twin gestation, IUGR twin A, tenth percentile. POSTOPERATIVE DIAGNOSIS: 36 week, 4 days di/di twin gestation, IUGR twin A, tenth percentile. OPERATION PERFORMED: Primary low transverse section. SURGEON: Felicity Bennett M.D. BUSINESS PROFESSOR: Radha Beasley CNM INDICATION FOR OPERATION: May is a 24-year-old, G2, now P1-1-0-3, who had a scheduled section at 36 weeks, 4 days for di/di twin gestation with known IUGR of twin A, tenth percentile which was an increase from less than third percentile in previous imaging. The patient desired a primary section even though recently ultrasound showed cephalic/cephalic presentation. MATERIAL FORWARDED TO THE LAB FOR EXAMINATION: Placentas. DESCRIPTION OF FINDINGS: Male and male infants, twin A Apgars 8 and 8, weight 2410 gm, 5 lb, 5 oz. Twin B Apgars 9 and 9, weight 2390 gm or 5 lb, 4 oz. Normal appearing uterus, fallopian tubes and ovaries. INFECTION CLASSIFICATION: 2. ESTIMATED BLOOD LOSS: 500 mL IV FLUIDS: 1600 mL of lactated Ringers. URINE OUTPUT: 100 mL of clear yellow urine. DESCRIPTION OF OPERATION: After obtaining informed consent, the patient was taken to the operating room. There was reactive tracing x2 prior. She received spinal anesthesia and bilateral sequential compression devices were placed. Napier catheter was placed. She was prepped and draped in normal sterile fashion in the dorsal supine position with a left lateral tilt. She received two grams of Ancef IV prophylaxis. A timeout was performed to confirm patient name, date of , procedure and indications and the team was in agreement. Spinal anesthesia was found to be adequate using an Allis clamp. A Pfannenstiel skin incision was made with the scalpel and carried through to the underlying layer of fascia. The fascia was incised in the midline and the incision was extended laterally with Arguello scissors. The superior and inferior aspects of the fascial incision were grasped with Jac clamps, elevated and the underlying rectus muscles were dissected off bluntly and sharply. The peritoneum was entered digitally and the rectus muscles were in the midline. The peritoneal incision was extended superiorly and inferiorly with good visualization of the bladder. The bladder blade was inserted and the vesicouterine peritoneum was identified and grasped with pickups and entered sharply with Metzenbaum scissors. The incision was then extended laterally and the bladder flap was created digitally. The bladder blade was reinserted and the lower uterine segment was scored in a transverse fashion with a scalpel. The uterus was entered bluntly and the incision was extended with traction. The bladder blade was removed and the infant Twin As head was elevated to the level of the incision. Fundal pressure was applied. The head was delivered atraumatically in the OA position. The anterior shoulder, posterior shoulder and corpus were delivered without difficulty. The nose and mouth were suctioned with bulb suction and cord was clamped x2 and cut. Twin A was handed off to the awaiting team. At that point, I palpated for the next twins presenting part and there was a foot but the head was directly next to it so the was cephalic. After performing amniotomy, fundal pressure was applied and twin B delivered OA as well. Anterior shoulder, posterior shoulder and corpus were delivered without difficulty. The nose and mouth were suctioned with bulb suction. The cord was clamped x2 and cut and twin B was then handed off to the awaiting team. The placentas were removed with traction on the cord and uterine massage and the uterus was then exteriorized and cleared of all clot and debris. The uterine incision was repaired with 0 Vicryl suture in a running fashion and a second layer of 0 Monocryl suture was used to close the hysterotomy incision in an imbricating fashion. The uterine incision was inspected. Hemostasis was noted. The posterior cul-de-sac was irrigated and uterus returned to the abdomen. Gutters were cleared of clot. The peritoneum was closed using 3-0 Vicryl suture in a running fashion. The rectus muscles were reapproximated with [id number] sutures using 3-0 Vicryl suture. The fascia was reapproximated with 0 Vicryl suture in a running fashion. The subcutaneous tissue was copiously irrigated. Scarpas fascia was reapproximated using 3-0 Vicryl suture in a running fashion. skin edges were reapproximated using three inverted interrupted stitches using 3-0 Vicryl suture followed by running subcuticular stitch using 4-0 Monocryl suture. The incision was cleaned using wet lap, dried with a dry lap. Steri-Strips were applied in the usual fashion perpendicular to the Pfannenstiel incision and an Optifoam dressing was layered on top. The vagina was cleared of all blood clot without active bleeding noted. The fundus was firm at U minus 2 cm. All counts were correct x2. The procedure was without complication. The patient tolerated the procedure well. She was taken to the recovery room on labor and delivery in stable condition. MICHAEL
[2020-03-15] MEDS: PRENATAL VITAMINS CHEWABLE TABLET PO SCH (08:25)
[2020-03-15] MEDS: DOCUSATE SODIUM 100 MG CAP PO SCH ×2 (08:25→20:06)
[2020-03-15 10:00] VITALS: BP 131/66
[2020-03-15] MEDS: IBUPROFEN 800 MG TAB PO SCH ×2 (12:25→20:06)
[2020-03-15 14:00] VITALS: BP 131/67
[2020-03-15 18:00] VITALS: BP 138/63
[2020-03-15 21:50] VITALS: BP 137/70
[2020-03-16 01:51] VITALS: BP 125/58
[2020-03-16] MEDS: IBUPROFEN 800 MG TAB PO SCH ×3 (04:22→19:32)
[2020-03-16] MEDS: PERCOCET 5MG/325MG TAB PO PRN ×3 (05:16→19:34)
[2020-03-16 05:55] VITALS: BP 130/56
[2020-03-16] MEDS: PRENATAL VITAMINS CHEWABLE TABLET PO SCH (09:04)
[2020-03-16] MEDS: DOCUSATE SODIUM 100 MG CAP PO SCH ×2 (09:04→19:32)
[2020-03-16] MEDS ORDERED: IBUP80TA PO (09:54)
[2020-03-16] MEDS ORDERED: DOCU100C16 PO (09:54)
[2020-03-16] MEDS ORDERED: PERCOCET PO (09:54)
[2020-03-16 10:00] VITALS: BP 128/63
[2020-03-16 14:00] VITALS: BP 131/67
[2020-03-16 18:00] VITALS: BP 142/85
--- NOTE | 2020-03-16 19:12 | IPNPDOC ---
Progress Note Date of Service: Mar 16, 2020 Day#: 2 Progress Note SUBJECT: May is a 24-year-old 2 now Para 1-1-0-3 status post [place] an section for di/di twins, twin b with IUGR, doing well day # 2. She has been ambulating to the NICU independently and tolerating regular diet. Breast feeding without issue. Reports lochia is like a normal period. Reports some cramping with . Pain well controlled on Tylenol, Motrin, and Percocet. Voiding and passing flatus without difficulty. OBJECTIVE: VITAL SIGNS: Within normal limits, afebrile. Alert and oriented times three. Respiratory: Regular rate, no accessory muscle use. Abdomen: Fundus firm at U-1. Soft, NTTP. Dressing dry and intact, no further drainage. Minimal lochia. ASSESSMENT: Post-operative Day 2 PLAN: 1. Discharge to home tomorrow. 2. Tylenol, Motrin, and Percocet for pain. 3. Encourage breast feeding and ambulation. VS, I&O, 24H, Fishbone Vital Signs/I&O Vital Signs Date Time Temp Pulse Resp B/P (MAP) Pulse Ox O2 Delivery O2 Flow Rate FiO2 03/16/20 18:00 98.3 64 18 142/85 (104) 98 Room Air BHAVANA GILL CNM Mar 16, 2020 19:12
[2020-03-17] MEDS: IBUPROFEN 800 MG TAB PO SCH ×2 (03:28→12:04)
[2020-03-17] MEDS: PERCOCET 5MG/325MG TAB PO PRN ×2 (05:28→10:33)
[2020-03-17 06:00] VITALS: BP 138/73
--- NOTE | 2020-03-17 07:20 | DS.PDOC ---
Discharge Summary General Date of Admission Mar 14, 2020 at 05:16 Date of Discharge 03/17/2020 Primary Care Physician: BHAVANA GILL CNM Attending Physician: Felicity Bennett MD Discharge Summary PROCEDURES PERFORMED DURING STAY: Primary C/Section for Di/Di Twins. ADMITTING DIAGNOSES: 1. Term Twin . DISCHARGE DIAGNOSES: 1. Status post Primary C/Section. COMPLICATIONS/CHIEF COMPLAINT: Cort[place] Twins, Malpresentation IUGR Twin A. HISTORY OF PRESENT ILLNESS: May is a 24 y/o female, now who presented for a scheduled Primary C/Section for Di/Di Twins complicated by Twin A being IUGR at 36 weeks EGA. She had an uncomplicated C/Section and was transferred to Maternity. She has progressed in her recovery well. Pain well controlled with Tylenol, Motrin, and Percocet. She is passing flatus, voiding without difficulty. Ambulating to NICU without issue. HOSPITAL COURSE: Uncomplicated. DISCHARGE MEDICATIONS: Please see below. ALLERGIES: Please see below. PHYSICAL EXAMINATION ON DISCHARGE: VITAL SIGNS: Please see below. GENERAL: Alert and oriented x3, appears well. NECK: Supple, no JVD noted. CARDIOVASCULAR EXAMINATION: Regular rate and rhythm, no RESPIRATORY EXAMINATION: Regular rate, no accessory muscle use. ABDOMINAL EXAMINATION: Soft, non-tender, fundus firm at U, Dressing dry and intact, no new drainage. EXTREMITIES: No edema bilateral lower extremities. SKIN: Intact, pink NEUROLOGICAL EXAMINATION: Denies headache, visual changes. PSYCHIATRIC EXAMINATION: Reports fatigue but feels well. LABORATORY DATA: Please see below. PROGNOSIS: ACTIVITY: As tolerated. DIET: Regular DISCHARGE PLAN: Home today DISPOSITION: Stable. DISCHARGE INSTRUCTIONS: 1. Warning signs to report. 2. Tylenol, Motrin, and Percocet as needed. 3. Dressing to be removed on Post op Day 5 4. Pelvic rest for 6 weeks. ITEMS TO FOLLOWUP ON ON OUTPATIENT: 1. 2 week incision check. 2. 6-8 week Appointment. DISCHARGE CONDITION: Stable. Vital Signs/I&Os Vital Signs Date Time Temp Pulse Resp B/P (MAP) Pulse Ox O2 Delivery O2 Flow Rate FiO2 03/17/20 06:00 97.7 64 17 138/73 (94) 95 Room Air Discharge Medications Scheduled Docusate Sodium (Docusate Sodium) 100 Mg Capsule, 100 MG PO BID Ibuprofen (Ibuprofen) 800 Mg Tablet, 800 MG PO Q8H Scheduled PRN Oxycodone/Acetaminophen (Oxycodone-Acetaminophen 5-325) 1 Each Tablet, 2 TAB PO Q6H PRN for SEVERE PAIN (PS 8-10) Miscellaneous Medications ,Calc.40/Iron/Folate 1 (Pnv-Select Tablet) 1 Each Tablet, 1 TAB PO, (Reported) Allergies Coded Allergies: No Known Allergies (Unverified , 03/07/20) BHAVANA GILL CNM Mar 17, 2020 07:19
[2020-03-17] MEDS: DOCUSATE SODIUM 100 MG CAP PO SCH (10:32)
[2020-03-17] MEDS: PRENATAL VITAMINS CHEWABLE TABLET PO SCH (10:32)
== END 2020-03-17 12:25 | disposition home or self-care (01) | DRG 540 ==
LOC: M LDI 03-14 05:16 → M OBS 03-14 13:12
PROVIDERS: ADMIT Obstetrics & Gynecology; ATTEND Obstetrics & Gynecology
PROC: 10D00Z1 Extraction of Products of Conception, Low, Open Approach (ICD-10-PCS; principal; 2020-03-14 07:30)
DX: O36.5931 Maternal care for other known or suspected poor fetal growth, third trimester, fetus 1 (principal); O30.043 Twin pregnancy, dichorionic/diamniotic, third trimester; Z37.2 Twins, both liveborn; Z3A.36 36 weeks gestation of pregnancy

== ENCOUNTER → 2020-03-11 | Outpatient (CLI) | payer OTHER ==
[~2020-03-11] MED LIST changes: +DOCU100C16 PO; +IBUP80TA PO; +PERCOCET PO
--- NOTE | 2020-03-11 15:25 | REP ---
INDICATION: BPP/CORD DOPPLERS - TWINS. COMPARISON: Multiple FINDINGS: Twin a: Presentation: Cephalic Placenta posterior not low lying heart rate: 140 beats per minute Amniotic fluid volume: Normal Umbilical artery Doppler: A\B ratio 2.13 within normal limits. biophysical profile: 2 for breathing, 2 for tone, 2 for movement, and 2 for amniotic fluid volume 8/8. Twin B: Presentation: Cephalic Placenta: Posterior not low lying heart rate: 144 beats per minute Amniotic fluid volume: Normal biophysical profile: 2 for breathing, 2 for movement, 2 for tone, and 2 for amniotic fluid volume. 8/8. Cervical length: 3.0 centimeters IMPRESSION: As above <Electronically signed by Master Sawyer > 03/11/20 [id number]
== END ==
LOC: M WHC 14:01
PROVIDERS: ATTEND Advanced Practice Midwife
DX: Z36.89 Encounter for other specified antenatal screening (principal)

== ENCOUNTER → 2020-07-15 | Outpatient (REF) | payer OTHER ==
[2020-07-15 16:05] LABS: HEMATOCRIT 42.3 % (36.0-47.0); HEMOGLOBIN 13.6 g/dl (12.0-15.5); MEAN CORPUSCULAR HEMOGLOBIN 29.2 pg (27.0-33.0); MEAN CORPUSCULAR HGB CONC 32.2 g/dl (32.0-36.5); MEAN CORPUSCULAR VOLUME 90.8 fl (80.0-96.0); PLATELET COUNT, AUTOMATED 237 10^3/uL (150-450); RED BLOOD COUNT 4.66 10^6/uL (4.00-5.40); WHITE BLOOD COUNT 7.8 10^3/uL (4.0-10.0)
[2020-07-15 16:44] LABS: ALT/SGPT 30 U/L (12-78); BILIRUBIN,TOTAL 0.2 MG/DL (0.2-1.0); BLOOD UREA NITROGEN 15 MG/DL (7-18); CARBON DIOXIDE LEVEL 26 MEQ/L (21-32); CHLORIDE LEVEL 108 MEQ/L (98-107); CREATININE FOR GFR 0.64 MG/DL (0.55-1.30); FREE T4 0.97 NG/DL (0.76-1.46); GLOMERULAR FILTRATION RATE > 60.0 (>60); GLUCOSE, FASTING 83 MG/DL (70-100); POTASSIUM SERUM 4.3 MEQ/L (3.5-5.1); SODIUM LEVEL 138 MEQ/L (136-145); TOTAL PROTEIN 7.4 GM/DL (6.4-8.2)
== END ==
LOC: M PLALAB 13:02
PROVIDERS: ATTEND Advanced Practice Midwife
DX: Z12.4 Encounter for screening for malignant neoplasm of cervix (principal)

== ENCOUNTER → 2021-05-02 | Outpatient (REF) | payer OTHER | LOC: M LAB REF 19:15 | PROVIDERS: ATTEND Nurse Practitioner Family | DX: S91.301A Unspecified open wound, right foot, initial encounter (principal); X58.XXXA Exposure to other specified factors, initial encounter; Y92.9 Unspecified place or not applicable ==

== ENCOUNTER 2023-08-14 13:22 | Emergency (ER) | payer OTHER ==
[~2023-08-14] VITALS: Ht 160 cm; Wt 78.1 kg
[2023-08-14] MEDS ORDERED: BUPR75TA5 (13:35)
[2023-08-14] MEDS ORDERED: HYDR-3363 (13:35)
[2023-08-14] MEDS ORDERED: AMOX875T2 (13:35)
[2023-08-14 14:04] LABS: BASO # 0.1 10^3/uL (0.0-0.2); BASO % 0.7 % (0.0-1.0); EOS # 0.2 10^3/uL (0.0-0.5); EOS % 2.8 % (0.0-3.0); HEMATOCRIT 40.3 % (36.0-47.0); HEMOGLOBIN 13.7 g/dl (12.0-15.5); LYMPH # 2.4 10^3/uL (1.5-5.0); LYMPH % 31.8 % (24.0-44.0); MEAN CORPUSCULAR HEMOGLOBIN 30.8 pg (27.0-33.0); MEAN CORPUSCULAR VOLUME 90.6 fl (80.0-96.0); MONO # 0.4 10^3/uL (0.0-0.8); MONO % 5.1 % (2.0-8.0); NEUTROPHILS # 4.5 10^3/uL (1.5-8.5); NEUTROPHILS % 59.3 % (36.0-66.0); PLATELET COUNT, AUTOMATED 251 10^3/uL (150-450); RED BLOOD COUNT 4.45 10^6/uL (4.00-5.40); WHITE BLOOD COUNT 7.5 10^3/uL (4.0-10.0)
[2023-08-14 14:32] LABS: CPK CREATINE PHOSPHOKINASE 303 U/L (34-145)
[2023-08-14 14:33] LABS: ALBUMIN 3.7 G/DL (3.2-5.2); ALKALINE PHOSPHATASE 68 U/L (46-116); ALT/SGPT 25 U/L (7.0-40); AST/SGOT 18 U/L (<34); BILIRUBIN,DIRECT < 0.1 MG/DL (<0.4); BILIRUBIN,TOTAL 0.3 MG/DL (0.3-1.2); BLOOD UREA NITROGEN 20 MG/DL (9-23); CALCIUM LEVEL 9.4 MG/DL (8.5-10.1); CARBON DIOXIDE LEVEL 25 MMOL/L (20-31); CHLORIDE LEVEL 108 MMOL/L (98-107); CK-MB VALUE MASS 1.3 NG/ML (<3.6); CREATININE FOR GFR 0.71 MG/DL (0.55-1.30); GLOMERULAR FILTRATION RATE > 60.0 (>60); GLUCOSE, FASTING 102 MG/DL (60-100); MAGNESIUM LEVEL 1.9 MG/DL (1.8-2.4); MB/CK RELATIVE INDEX 0.42 (< OR =4); POTASSIUM SERUM 3.8 MMOL/L (3.5-5.1); SODIUM LEVEL 139 MMOL/L (136-145); TOTAL PROTEIN 6.6 G/DL (5.7-8.2)
[2023-08-14 15:03] LABS: HCG, SERUM QUALITATIVE NEGATIVE (NEGATIVE)
[2023-08-14 19:32] LABS: CK-MB VALUE MASS < 1.0 NG/ML (<3.6)
[2023-08-14 19:34] LABS: CPK CREATINE PHOSPHOKINASE 259 U/L (34-145); MB/CK RELATIVE INDEX 0.38 (< OR =4)
[2023-08-14 19:36] LABS: FREE T4 1.04 NG/DL (0.89-1.76)
[2023-08-14] MEDS ORDERED: HYDR-3363 PO (20:07)
[2023-08-14] MEDS ORDERED: HOLTER MONITOR XX (20:10)
[2023-08-14 20:26] VITALS: BP 130/77; TEMP 98.1; O2SAT 96
== END 2023-08-14 20:27 | disposition home or self-care (01) ==
LOC: M ED 13:22
DX: R07.9 Chest pain, unspecified (principal); R00.2 Palpitations; F17.200 Nicotine dependence, unspecified, uncomplicated; F12.10 Cannabis abuse, uncomplicated; Z79.2 Long term (current) use of antibiotics; Z79.899 Other long term (current) drug therapy; Z88.2 Allergy status to sulfonamides; Z88.8 Allergy status to other drugs, medicaments and biological substances

== ENCOUNTER → 2023-08-15 | Outpatient (CLI) | payer OTHER ==
[~2023-08-15] MED LIST changes: +AMOX875T2; +BUPR75TA5; +HOLTER MONITOR XX; +HYDR-3363; +HYDR-3363 PO
== END ==
LOC: M EKG 14:54
PROVIDERS: ATTEND Physician Assistant Medical
DX: R00.2 Palpitations (principal)

== ENCOUNTER → 2024-01-23 | Outpatient (REF) | payer OTHER ==
[2024-01-23 15:20] LABS: BASO % 0.4 % (0.0-1.0); EOS # 0.2 10^3/uL (0.0-0.5); EOS % 1.9 % (0.0-3.0); HEMATOCRIT 39.9 % (36.0-47.0); HEMOGLOBIN 13.4 g/dl (12.0-15.5); LYMPH # 2.4 10^3/uL (1.5-5.0); LYMPH % 30.7 % (24.0-44.0); MEAN CORPUSCULAR HEMOGLOBIN 30.8 pg (27.0-33.0); MEAN CORPUSCULAR HGB CONC 33.6 g/dl (32.0-36.5); MEAN CORPUSCULAR VOLUME 91.7 fl (80.0-96.0); MONO # 0.5 10^3/uL (0.0-0.8); MONO % 5.9 % (2.0-8.0); NEUTROPHILS # 4.8 10^3/uL (1.5-8.5); NEUTROPHILS % 60.7 % (36.0-66.0); PLATELET COUNT, AUTOMATED 240 10^3/uL (150-450); RED BLOOD COUNT 4.35 10^6/uL (4.00-5.40); WHITE BLOOD COUNT 7.9 10^3/uL (4.0-10.0)
[2024-01-23 15:28] LABS: HEMOGLOBIN A1c 4.8 % (4.0-6.0)
[2024-01-23 15:44] LABS: ALBUMIN 4.3 G/DL (3.2-5.2); ALKALINE PHOSPHATASE 65 U/L (46-116); ALT/SGPT 25 U/L (7.0-40); AST/SGOT 17 U/L (<34); BILIRUBIN,TOTAL 0.4 MG/DL (0.3-1.2); BLOOD UREA NITROGEN 14 MG/DL (9-23); CALCIUM LEVEL 9.4 MG/DL (8.5-10.1); CARBON DIOXIDE LEVEL 25 MMOL/L (20-31); CHLORIDE LEVEL 107 MMOL/L (98-107); CHOLESTEROL LEVEL 171 MG/DL (<200); CHOLESTEROL RISK RATIO 2.72 (<5); CREATININE FOR GFR 0.66 MG/DL (0.55-1.30); GLOMERULAR FILTRATION RATE > 60.0 (>60); GLUCOSE, FASTING 76 MG/DL (60-100); HDL CHOLESTEROL 62.8 MG/DL (>40); LDL CHOLESTEROL 93.8 MG/DL (<100); MAGNESIUM LEVEL 1.9 MG/DL (1.8-2.4); NON-HDL-C 108.2 MG/DL; POTASSIUM SERUM 5.8 MMOL/L (3.5-5.1); SODIUM LEVEL 136 MMOL/L (136-145); TOTAL PROTEIN 7.2 G/DL (5.7-8.2); TRIGLYCERIDES LEVEL 72 MG/DL (<150)
[2024-01-23 15:47] LABS: THYROID STIMULATING HORMONE 3.964 uIU/ML (0.55-4.78); TOTAL 25(OH) VITAMIN D 37.6 NG/ML (20.0-100.0)
== END ==
LOC: M LAB REF 01-22 13:04
PROVIDERS: ATTEND Nurse Practitioner Family
DX: E66.9 Obesity, unspecified (principal); E55.9 Vitamin D deficiency, unspecified

== ENCOUNTER 2024-02-01 08:40 | Emergency (ER) | payer OTHER ==
[~2024-02-01] VITALS: Ht 160 cm; Wt 77.6 kg
[2024-02-01] MEDS ORDERED: APAP500T10 PO (09:13)
[2024-02-01 09:41] LABS: BASO % 0.3 % (0.0-1.0); EOS # 0.1 10^3/uL (0.0-0.5); EOS % 1.3 % (0.0-3.0); HEMATOCRIT 35.2 % (36.0-47.0); HEMOGLOBIN 11.9 g/dl (12.0-15.5); LYMPH # 0.9 10^3/uL (1.5-5.0); LYMPH % 8.5 % (24.0-44.0); MEAN CORPUSCULAR HEMOGLOBIN 30.9 pg (27.0-33.0); MEAN CORPUSCULAR HGB CONC 33.8 g/dl (32.0-36.5); MEAN CORPUSCULAR VOLUME 91.4 fl (80.0-96.0); MONO # 0.7 10^3/uL (0.0-0.8); MONO % 6.8 % (2.0-8.0); NEUTROPHILS # 8.8 10^3/uL (1.5-8.5); NEUTROPHILS % 82.7 % (36.0-66.0); PLATELET COUNT, AUTOMATED 159 10^3/uL (150-450); RED BLOOD COUNT 3.85 10^6/uL (4.00-5.40); WHITE BLOOD COUNT 10.6 10^3/uL (4.0-10.0)
[2024-02-01 10:33] LABS: BLOOD UREA NITROGEN 7 MG/DL (9-23); CALCIUM LEVEL 8.9 MG/DL (8.5-10.1); CARBON DIOXIDE LEVEL 25 MMOL/L (20-31); CHLORIDE LEVEL 112 MMOL/L (98-107); CREATININE FOR GFR 0.54 MG/DL (0.55-1.30); GLOMERULAR FILTRATION RATE > 60.0 (>60); GLUCOSE, FASTING 93 MG/DL (60-100); POTASSIUM SERUM 4.3 MMOL/L (3.5-5.1); SODIUM LEVEL 139 MMOL/L (136-145)
[2024-02-01 10:49] LABS: HCG, SERUM QUALITATIVE NEGATIVE (NEGATIVE); MONO SCRN NEGATIVE (NEGATIVE)
[2024-02-01] MEDS ORDERED: AMOX875T PO (11:21)
[2024-02-01 11:32] VITALS: BP 120/60; TEMP 98.2; O2SAT 100
== END 2024-02-01 11:52 | disposition home or self-care (01) ==
LOC: M ED 08:40
DX: J02.0 Streptococcal pharyngitis (principal); F17.200 Nicotine dependence, unspecified, uncomplicated; F41.9 Anxiety disorder, unspecified; Z88.2 Allergy status to sulfonamides; Z79.2 Long term (current) use of antibiotics; Z79.899 Other long term (current) drug therapy

== ENCOUNTER → 2024-12-24 | Outpatient (REF) | payer OTHER ==
[~2024-12-24] MED LIST changes: +AMOX875T PO; +APAP500T10 PO
[2024-12-26 15:08] LABS: CANDIDA GLABRATA NAA NOT DETECTED (NOT DETECTED); TRICH VAG BY NAA NOT DETECTED (NOT DETECTED)
[2024-12-26 15:17] LABS: BVAB 2 NEGATIVE (NEGATIVE)
[2024-12-26 15:43] LABS: CHLAMYDIA TRACHOMATIS NAA NOT DETECTED (NOT DETECTED)
== END ==
LOC: M SFHCCAPE 11:30
PROVIDERS: ATTEND Physician Assistant Medical
DX: R30.0 Dysuria (principal); N89.8 Other specified noninflammatory disorders of vagina

== ENCOUNTER → 2025-05-05 | Outpatient (CLI) | payer OTHER ==
[~2025-05-05] MED LIST changes: +BUPR-363; -BUPR75TA5
== END ==
LOC: M WHC 11:40
PROVIDERS: ATTEND Physician Assistant Medical
DX: N64.4 Mastodynia (principal); Z53.9 Procedure and treatment not carried out, unspecified reason